=== PATIENT | male | born 1980 | race Caucasian/White ===

== ENCOUNTER 2023-09-14 09:35 | Emergency (ER) | payer OTHER, MEDICAID, SELFPAY ==
[2023-09-14 09:40] VITALS: BP 132/91; PULSE 82; TEMP 36.7; O2SAT 98; BMI 30.2
--- NOTE | 2023-09-14 10:06 | XR_ITS ---
The [address] [address] Patient Name: KONSTANTIN LAURENT MRN: [id number] date: 1980 Sex: M Assigned Patient Location: ER Current Patient Location: Accession/Order Number: [id number] Exam Date: 09/14/2023 10:20 Report Date: 09/14/2023 12:38 At the request of: MUSA TREVIZO Procedure: XR abdomen 1V EXAM: XR abdomen 1V , 09/14/2023 HISTORY: sbo ? COMPARISON: CT scan of the abdomen and pelvis 2020. TECHNIQUE: X-rays of the abdomen and pelvis AP views. FINDINGS: No obvious radiopaque density in the region of the kidneys, ureters or bladder to suggest urolithiasis. Likely phleboliths in the left lower pelvis. No evidence of bowel obstruction. No obvious bowel loop dilatation. The lung bases are clear. No acute osseous findings. XR/XR abdomen 1V IMPRESSION: Nonacute x-rays of the abdomen and pelvis. Electronically authenticated by: MOHAN SHARMA Date: 09/14/2023 12:38
[2023-09-14] MEDS: KETOROLAC TROMETHAMINE 30 MG/ML VIAL IM (10:28)
--- NOTE | 2023-09-14 10:29 | ED.ABDPAIN1 ---
HPI - Abdominal Pain General Chief Complaint: Abdominal Pain Stated Complaint: LOWER BACK PAIN Time Seen by Provider: 09/14/23 09:58 Source: patient Mode of arrival: walk-in Limitations: no limitations History of Present Illness HPI narrative: The patient is coming to the ER with almost 2 days history of what he thinks is a small prolapse in the rectal area that started after he was working in his garden, he was not carrying anything heavy he was just leaning down when the pain started and he noticed some bleeding with his bowel movement. Patient does not have regular daily bowel movement he usually have them every 2 days No other complaints he mentioned that he had something similar before we had a colonoscopy done and they told him he does not have any hemorrhoids Patient having some abdominal cramping sometimes and mild nausea although he is still continuing to have his normal diet Related Data Previous Rx's ?Medication ?Instructions ?Recorded bisacodyl 5 mg tablet,delayed 5 mg PO DAILY PRN constipation #10 09/14/23 release (Dulcolax (bisacodyl)) tabs hydrocortisone acetate 25 mg 25 mg NE BID PRN hemorrhoids #12 ea 09/14/23 rectal suppository (Anusol-HC) lidocaine 5 % topical cream 1 applic topical QID PRN pain #30 09/14/23 (RectiCare) grams Allergies Allergy/AdvReac Type Severity Reaction Status Date / Time No Known Drug Allergies Allergy Verified 09/14/23 10:28 Review of Systems ROS Status of ROS 10 or more systems reviewed and unremarkable except as noted in history and below Exam Narrative Exam Narrative: Nurses notes and vital signs reviewed and patient is not hypoxic. General: Well-appearing and in no apparent distress. Skin: Warm, dry, no pallor noted. No rash. Head: Normocephalic, atraumatic. Neck: Supple, non-tender. Eye: Pupils are equal, round and EOMI. No scleral icterus. Ears, Nose, Mouth, and Throat: TM are clear, no nasal mucosal hypertrophy. Oral mucosa is moist, no posterior oropharynx erythema, uvula is mid-line Cardiovascular: Regular Rate and Rhythm without murmur, gallop or rub. Respiratory: No accessory muscle use or respiratory distress. Lungs are clear to auscultation, no wheezing, rales or rhonchi Chest Wall: no tenderness Back: No midline thoracic or lumbar vertebral tenderness. No CVA tenderness Musculoskeletal: normal ROM, no calf or popliteal tenderness, no lower extremity edema/swelling GI: Abdomen is soft, non-distended. Normal bowel sounds. No masses appreciated. No tenderness to palpation. No rebound, guarding, or rigidity noted. Neurological: A&O x4. No cranial nerve dysfunction observed. No truncal ataxia. Moves all extremities. Sensation intact. Psychiatric: Cooperative and interactive. Normal mood and affect. Rectal: The patient rectal exam showed that the patient have large hemorrhoids mostly stage III or IV at 6:00 nonbleeding but inflamed and not infected, patient also have another hemorrhoid at 12:00 that is mildly large also nonbleeding No induration noted no signs of infection Constitutional Vital Signs, click to edit/add: Last Vital Signs Temp 98.1 F 09/14/23 09:40 Pulse 88 09/14/23 11:51 Resp 16 09/14/23 11:51 BP 125/80 09/14/23 11:51 Pulse Ox 100 09/14/23 11:51 O2 Del Method Room Air 09/14/23 09:40 Course Vital Signs Vital signs: Vital Signs Temperature 98.1 F 09/14/23 09:40 Pulse Rate 82 09/14/23 09:40 Respiratory Rate 18 09/14/23 09:40 Blood Pressure 132/91 09/14/23 09:40 Pulse Oximetry 98 09/14/23 09:40 Oxygen Delivery Method Room Air 09/14/23 09:40 Temperature 98.1 F 09/14/23 09:40 Pulse Rate 88 09/14/23 11:51 Respiratory Rate 16 09/14/23 11:51 Blood Pressure 125/80 09/14/23 11:51 Pulse Oximetry 100 09/14/23 11:51 Oxygen Delivery Method Room Air 09/14/23 09:40 MDM - Abdominal Pain MDM Narrative Medical decision making narrative: Patient presenting to us with a presentation of constipation and hemorrhoid which is not bleeding at the moment X-ray of the patient abdomen shows no acute pathology on the prelim reading The patient was discharged home with Dulcolax for constipation management addition to warm sitz bath lidocaine and Anusol as local care for the hemorrhoid The patient to monitor his symptoms he is to follow-up with his primary care as outpatient and he was instructed about the importance of monitoring in case of any increase in symptoms or bleeding he is to come back to the ER The patient is to follow up with primary care physician in next 2-3 days or to return to the emergency department should any of the signs or symptoms worsen or new symptoms develop. The patient agrees with the following Diagnosis and Treatment plan and the patient will be discharged home. Discharge Plan Discharge Stand Alone Forms: Portal Instructions Chief Complaint: Abdominal Pain Clinical Impression: Hemorrhoids Qualifiers: Hemorrhoid type: third degree Qualified Code(s): K64.2 - Third degree hemorrhoids Patient Disposition: Home, Self-Care Time of Disposition Decision: 10:28 Condition: Good Prescriptions / Home Meds: New hydrocortisone acetate [Anusol-HC] 25 mg suppository 25 mg NE BID PRN (Reason: hemorrhoids) Qty: 12 0RF lidocaine [RectiCare] 5 % cream 1 applic topical QID PRN (Reason: pain) Qty: 30 0RF bisacodyl [Dulcolax (bisacodyl)] 5 mg tablet,delayed release (DR/EC) 5 mg PO DAILY PRN (Reason: constipation) Qty: 10 0RF Print Language: Indonesian Instructions: Constipation (DC), Hemorrhoids (DC), Sitz Bath (DC) Referrals: DELFINA GARCIA [Primary Care Provider] - 1 week Bandar Munoz DO [Physician] - 1 week Discharge Date/Time: 09/14/23 11:50
[2023-09-14 11:51] VITALS: BP 125/80; PULSE 88; O2SAT 100
== END 2023-09-14 11:50 | disposition home or self-care (01) ==
PROVIDERS: Emergency Provider Emergency Medicine; PCP Family Medicine
DX: K64.2 Third degree hemorrhoids (principal)
CPT/HCPCS: 74018; 96372; 99284; J1885